=== PATIENT | male | born 1960 | race Caucasian/White ===

== ENCOUNTER 2016-11-25 16:05 | Emergency (ER) | payer OTHER ==
[~2016-11-25] VITALS: Ht 180.3 cm; Wt 127.0 kg
--- NOTE | 2016-11-25 17:32 | ED CARDIAC/CP/PALPITATIONS ---
History of Present Illness General Chief Complaint: Abdominal Pain/Flank Pain Stated Complaint: R FLANK PAIN, COLD SYMPTOMS X 2 WEEKS Source: patient Exam Limitations: no limitations Vital Signs & Intake/Output Vital Signs & Intake/Output Vital Signs Date Time Temp Pulse Resp B/P Pulse O2 O2 Flow FiO2 Ox Delivery Rate 11/25 1817 97.4 92 19 142/76 98 Room Air 11/25 1611 97.9 104 20 146/80 95 Room Air Allergies Coded Allergies: No Known Allergies (11/25/16) Reconcile Medications Albuterol Sulfate (Proair Hfa) 90 MCG HFA.AER.AD 2 PUF INH Q4-6 PRN PRN RESPIRATORY (Reported) Amoxicillin/Clavulanate Potass (Amox-Clav 875-125 MG Tablet) 875 MG-125 MG TABLET 1 TAB PO BID ANTIBIOTIC (Reported) Codeine Phosphate/Guaifenesi (Cheratussin AC Syrup) 10 MG-100 MG/5 ML LIQUID 10 ML PO BID COUGH (Reported) Fexofenadine HCl (Silvia Allergy) 180 MG TABLET 1 TAB PO DAILY ALLERGIES ( Reported) Hydrochlorothiazide 12.5 MG TABLET 1 TAB PO DAILY BP (Reported) Lisinopril 20 MG TABLET 1 TAB PO DAILY BP (Reported) Meloxicam 15 MG TABLET 1 TAB PO DAILY PAIN/INFLAMMATION (Reported) Multivitamin (Multi-Day Vitamins) 1 EACH TABLET 1 TAB PO DAILY SUPPLEMENT ( Reported) Prednisone 20 MG TABLET 1 TAB PO BID STEROID (Reported) Rosuvastatin Calcium (Crestor) 5 MG TABLET 1 TAB PO DAILY CHOLESTEROL ( Reported) Tramadol HCl 50 MG TABLET 1 TAB PO BIDP PRN pain Triage Note: TRIAGE: PT TO ER C/C R SIDE/RIB PAIN AND COLD SYMPTOMS X 2 WEEKS. REPORTS PAIN WITH COUGHING. HAS HAD PRODUCTIVE SOUNDING COUGH BUT UNABLE TO EXPECTORATE. WAS SEEN AT [facility] X 2 SINCE ONSET OF S/S. WAS SENT FOR C XRAY WHICH WAS NEGATIVE FOR PNEUMONIA. WAS GIVEN PRESCRIPTION FOR ANTIBIOTICS AND "A LITTLE PAIN PILL". Triage Nurses Notes Reviewed? yes HPI: 56-year-old male arrived to triage to [facility] complaining of right-sided chest and rib pain. He reports over the past week he has had cough congestion. Had an outpatient chest x-ray which showed no pneumonia but was placed on Augmentin, albuterol, Robitussin, and meloxicam. Over the past week he has been complaining of bilateral rib pain because of the cough but yesterday the pain got worse in the right side axillary area sharp stabbing type pain. Worse with inspiration, cough and palpation. He has taken ibuprofen at home with no relief. He denies any fever or chills. He denies any abdominal pain or ischemiC type chest pain. He denies any shortness of breath, palpitations (ANGEL SEAMAN APRN) Past History Travel History Traveled to [place] past 21 day No Medical History Any Pertinent Medical History? 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 No (ANGEL SEAMAN APRN) Review of Systems Review of Systems Constitutional: Denies: no symptoms. EENTM: Denies: no symptoms. Respiratory: Reports: see HPI, cough. Cardiovascular: Reports: see HPI. Denies: no symptoms. GI: Denies: no symptoms. Genitourinary: Denies: no symptoms. Musculoskeletal: Reports: see HPI. Skin: Denies: no symptoms. Neurological/Psychological: Denies: no symptoms. Hematologic/Endocrine: Denies: no symptoms. Immunologic/Allergic: Denies: no symptoms. (ANGEL SEAMAN APRN) Physical Exam Physical Exam General Appearance: well developed/nourished, alert, awake, mild distress Head: atraumatic, normal appearance Ears, Nose, Throat: normal pharynx, normal ENT inspection Neck: normal inspection, supple, full range of motion Respiratory: normal breath sounds, no respiratory distress, quiet respiration, cHEST TENDER RIGHT MID AXILLARY AREA Cardiovascular: regular rate/rhythm Gastrointestinal: normal bowel sounds, soft, non-tender Back: normal inspection, normal range of motion Extremities: normal inspection, normal capillary refill, normal range of motion, no edema Neurologic/Psych: no motor/sensory deficits, awake, alert, oriented x 3, normal gait, normal mood/affect Skin: intact, normal color, warm/dry Core Measures ACS in differential dx? No Severe Sepsis Present: No Septic Shock Present: No (JURGEN ARCOS,ANGEL) Progress Differential Diagnosis: costochondritis, musculoskeletal pain, rib fracture, PLEURISY Plan of Care: Current Medications Sig/Joselin Start time Last Medication Dose Stop Time Status Admin Tramadol HCl 50 MG ONCE ONE 11/25 1944 UNVr (Ultram) 11/25 1945 Initial ED EKG: none Comments: PATIENT: BERTHA BRISCOE PRESENT AGE: 56 PATIENT ACCOUNT NO: [id number] : 61 LOCATION: [facility] ORDERING PHYSICIAN: ANGEL SEAMAN APRN SERVICE DATE: 11/25/16 EXAM TYPE: RAD - XRY-CHEST XRAY, PA AND LATERAL; XRY-RIBS UNILATERAL-RIGHT EXAMINATION: XR RIBS, RIGHT XR CHEST CLINICAL INFORMATION: Right-sided chest pain. Suspected right-sided rib fracture. COMPARISON: None TECHNIQUE: 3 views of the right ribs, and 2 views of the chest were obtained. FINDINGS: Chest: Both lung corey are symmetrically expanded and appear clear. The cardiac mediastinal silhouette is within normal limits. There is no evidence of any hemopneumothorax or lung contusion present. The visualized upper abdomen is unremarkable. Mild diffuse osteopenia is noted. Right-sided RIBS: There is a contour deformity consistent with nondisplaced fracture identified involving the posterior lateral aspect of the right ninth rib. The remainder of the right hemithoracic ribs appear intact. Multilevel degenerative spondylosis related changes are noted in the spine. IMPRESSION: 1. Subtle nondisplaced fracture is present at posterior lateral aspect of the right ninth rib. 2. No radiographic evidence of any hemopneumothorax, lung contusion is present. No acute cardiopulmonary disease. DICTATED BY: NAKUL SINGER MD DATE/TIME DICTATED:11/25/161855 SUPERVISOR POLICY CHANGE CLERKS:BARRETT DATE/TIME TRANSCRIBED:11/25/161855 CONFIDENTIAL, DO NOT COPY WITHOUT APPROPRIATE AUTHORIZATION. <Electronically signed in Other Vendor System> SIGNED BY: NAKUL SINGER MD 11/25/[id number] Inman. Explained to patient x-ray results. He will follow-up with Ramesh Rivero APRN this week. Tramadol given for pain. Encouraged incentive spirometer or deep breaths every couple hours for prevention of bronchitis/pneumonia. (ANGEL SEAMAN APRN) Departure Departure Time of Disposition: 1923 Disposition: HOME OR SELF CARE Condition: Stable Clinical Impression Primary Impression: Rib fracture Qualifiers: Encounter type: initial encounter Rib fracture type: single rib Fracture type: closed Laterality: right Qualified Code: S22.31XA - Fracture of one rib, right side, initial encounter for closed fracture Referrals: LISA LUCAS,LEORA Coto Additional Instructions: Tramadol 50 mg 3 times a day has needed for pain. Please follow-up with masked this coming week. Please return to the emergency department for any worsening or concerning symptoms. Please take 10 deep breaths every 4-6 hours for the next couple days to prevent pneumonia/bronchitis. Departure Forms: Customer Survey General Discharge Information Prescriptions: Current Visit Scripts Tramadol HCl 1 TAB PO BIDP PRN pain #30 TAB (ANGEL SEAMAN APRN) PA/CAFE SITE ATTENDANT Co-Sign Statement Statement: ED Attending supervision documentation- x I saw and evaluated the patient. I have also reviewed all the pertinent lab results and diagnostic results. I agree with the findings and the plan of care as documented in the PA's/CAFE SITE ATTENDANT's documentation. [] I have reviewed the ED Record and agree with the PA's/CAFE SITE ATTENDANT's documentation. [] Additions or exceptions (if any) to the PAs/CAFE SITE ATTENDANT's note and plan are summarized below: [] (CASEY MENDEZ,VITALY) Critical Care Note Critical Care Note Critical Care Time: non-applicable (ANGEL SEAMAN APRN)
[2016-11-25] MEDS ORDERED: MULTI-DAY VITA1 EACH PO (17:45)
[2016-11-25] MEDS ORDERED: ALLEGRA ALLERG180 M1 PO (17:45)
[2016-11-25] MEDS ORDERED: AMOX-CLAV 875-1 EACH PO (17:45)
[2016-11-25] MEDS ORDERED: PREDNISONE20 M1 PO (17:45)
[2016-11-25] MEDS ORDERED: CHERATUSSIN AC118 M1 PO (17:46)
[2016-11-25] MEDS ORDERED: PROAIR HFA8.5 GM INH (17:46)
[2016-11-25] MEDS ORDERED: CRESTOR5 M1 PO (17:46)
[2016-11-25] MEDS ORDERED: MELOXICAM15 M1 PO (17:46)
[2016-11-25] MEDS ORDERED: LISINOPRIL20 M1 PO (17:47)
[2016-11-25] MEDS ORDERED: HYDROCHLOROTH12.5 M2 PO (17:47)
[2016-11-25 18:17] VITALS: BP 142/76
--- NOTE | 2016-11-25 19:05 | RADIOLOGY REPORT ---
EXAMINATION: XR RIBS, RIGHT XR CHEST CLINICAL INFORMATION: Right-sided chest pain. Suspected right-sided rib fracture. COMPARISON: None TECHNIQUE: 3 views of the right ribs, and 2 views of the chest were obtained. FINDINGS: Chest: Both lung corey are symmetrically expanded and appear clear. The cardiac mediastinal silhouette is within normal limits. There is no evidence of any hemopneumothorax or lung contusion present. The visualized upper abdomen is unremarkable. Mild diffuse osteopenia is noted. Right-sided RIBS: There is a contour deformity consistent with nondisplaced fracture identified involving the posterior lateral aspect of the right ninth rib. The remainder of the right hemithoracic ribs appear intact. Multilevel degenerative spondylosis related changes are noted in the spine. IMPRESSION: 1. Subtle nondisplaced fracture is present at posterior lateral aspect of the right ninth rib. 2. No radiographic evidence of any hemopneumothorax, lung contusion is present. No acute cardiopulmonary disease.
[2016-11-25] MEDS ORDERED: TRAMADOL HCL50 M1 PO (19:38)
== END 2016-11-25 20:05 ==
LOC: ERH 16:05
DX: S22.31XA Fracture of one rib, right side, initial encounter for closed fracture (principal); R07.9 Chest pain, unspecified; X58.XXXA Exposure to other specified factors, initial encounter; Y92.9 Unspecified place or not applicable; Y93.9 Activity, unspecified
CPT/HCPCS: 71100-RT; 96372; J1885